=== PATIENT | female | born 1935 | race Caucasian/White ===

== ENCOUNTER 2016-12-17 13:42 | Inpatient (IN) | payer MEDICARE, BC ==
--- NOTE | ~2016-12-17 | CR72 ---
[facility]. [facility] A Service of [facility] RADIOLOGY TEXT RESULTS PATIENT: BABAR HUANG LOCATION: SED : 37 UNIT #: [id number] AGE: [address]: Deyvi Powell MD SEX: F ORDER DR: [id number] [place] [address] [id number] E MR#: [id number] Acc #: [id number] NAME: BABAR HUANG : 1935 SEX: F STUDY DATE/TIME: 12/17/2016 15:49 UNIT: SED ROOM: STUDY DESCRIPTION: CR Chest Single View Portable Attending Physician: Deyvi Powell M.D. Ordering Physician: Deyvi Powell M.D. Primary Care Physician: Jaimee Esteban A.P.R.N. MEDICAL IMAGING REPORT This report is preliminary unless electronic signature is present. EXAM Portable chest, 1-view. DATE OF STUDY 12/17/16 COMPARISON 09/03/2009 CLINICAL HISTORY Four day history of chest pain with exertion. FINDINGS There is no infiltrate or effusion or pneumothorax. Question of mild cardiomegaly, but otherwise negative. No acute abnormality. IMPRESSION Question mild cardiomegaly. Otherwise, normal/negative portable chest. Dictated by... Eloy Santos M.D. THIS IS AN ELECTRONICALLY VERIFIED REPORT Eloy Santos M.D. at 12/17/2016 10:46 PM ANNY/isaias TD: 12/17/2016 22:38 JOB #: [id number] MEDICAL IMAGING REPORT Page 1 of 1
--- NOTE | ~2016-12-17 | EKG ---
PATIENT: BABAR HUANG UNIT #: [id number] Ventricular Rate: 67 BPM Atrial Rate: 67 BPM P-R Interval: 144 ms QRS Duration: 78 ms Q-T Interval: 396 ms QTC Calculation(Bezet): 418 ms Calculated R [place]: -25 degrees Calculated T [place]: 150 degrees Diagnosis Line: Normal sinus rhythm Diagnosis Line: ST and T wave abnormality, consider lateral ischemia Diagnosis Line: Abnormal ECG Diagnosis Line: When compared with ECG of 04-SEP-2009 06:52, Diagnosis Line: Nonspecific T wave abnormality, improved in Diagnosis Line: Inferior leads Diagnosis Line: T wave inversion no longer evident in Anterior Diagnosis Line: leads Diagnosis Line: Confirmed by BRENNA ZAVALA MD ([id number]) on Diagnosis Line: 12/23/2016 3:36:12 PM INTERPRETING EDGAR MENDEZ
[~2016-12-17 13:42] MED LIST: ASPIRIN PO; DIOVAN PO; DIOVAN80 M1 PO; LISINOPRIL PO; LOPRESSOR PO; NORVASC10 MG PO; SYNTHROID PO
[2016-12-17] MEDS ORDERED: METOPROLOL PO (13:54)
[2016-12-17 14:31] LABS: BASOPHIL% 0.3 % (0-2.5); DIFF IND NO; HEMATOCRIT 43.3 % (35.0-45.0); HEMOGLOBIN 15.2 gm/dL (12.0-16.0); LYMPHOCYTE# 0.9 X10e3 (1.0-3.5); LYMPHOCYTE% 18.7 % (17.0-45.0); MEAN CELL VOLUME 91.3 FL (83-96); MEAN CORPUSCULAR HGB CONC 35.1 g/dL (30-36); MEAN PLATELET VOLUME 7.2 FL (6.5-11.5); MONOCYTE# 0.4 X10e3 (0-1.0); MONOCYTE% 8.8 % (3.0-12.0); NEUTROPHIL# 3.4 X10e3 (1.5-7.1); NEUTROPHIL% 71.2 % (40-75); PLATELET COUNT 168 X10e3 (140-420); RED BLOOD COUNT 4.74 X10e (3.90-5.30); RED CELL DISTRIBUTION WIDTH 13.1 % (11.0-15.5); WHITE BLOOD COUNT 4.8 X10e3 (4.0-10.5)
[2016-12-17 14:43] LABS: BILIRUBIN, DIRECT 0.2 mg/dL (0.0-0.2); BILIRUBIN,INDIRECT 0.8 mg/dL (0.0-0.9); CALCIUM SERUM 9.6 mg/dL (8.4-10.2); GLOM FILT RATE Estimated 53.6 mL/min (>60); POTASSIUM 3.8 mmol/L (3.5-5.1); PROTEIN TOTAL SERUM 7.7 g/dL (6.0-8.3)
[2016-12-17 14:54] LABS: INR 1.1; PROTHROMBIN TIME (PATIENT) 12.2 SECONDS (9.5-12.4)
[2016-12-17 15:01] LABS: PARTIAL THROMBOPLASTIN TIME 27.5 SECONDS (25.6-38.1)
[2016-12-17 16:03] LABS: POC - CKMB 2.2 ng/mL (0.0-7.9); POC - TROPONIN <0.05 ng/mL (<=0.05)
[2016-12-17 16:16] LABS: CK TOTAL <5 IU/L (26-140)
[2016-12-17 16:50] LABS: POC - CKMB 1.4 ng/mL (0.0-7.9); POC - TROPONIN <0.05 ng/mL (<=0.05)
[2016-12-17] MEDS ORDERED: METOPROLOL SUCC25 MG PO (17:19)
[2016-12-19] MEDS ORDERED: HYDROCHLOROTH12.5 MG PO (16:33)
[2016-12-19] MEDS ORDERED: SYNTHROID0.05 MG PO (16:33)
[2016-12-19] MEDS ORDERED: NORVASC PO (16:34)
[2016-12-19] MEDS ORDERED: COZAAR PO (16:35)
== END 2016-12-19 17:26 | disposition home or self-care (01) | DRG 313 ==
LOC: SED 13:42 → C5C 12-18 02:45
PROVIDERS: Emergency Medicine
PROC: B32TYZZ Computerized Tomography (CT Scan) of Left Pulmonary Artery using Other Contrast (ICD-10-PCS; principal; 2016-12-18)
PROC: B32SYZZ Computerized Tomography (CT Scan) of Right Pulmonary Artery using Other Contrast (ICD-10-PCS; 2016-12-18)
PROC: B24BYZZ Ultrasonography of Heart with Aorta using Other Contrast (ICD-10-PCS; 2016-12-18)
DX: R07.9 Chest pain, unspecified (principal); I49.5 Sick sinus syndrome; I10 Essential (primary) hypertension; E03.9 Hypothyroidism, unspecified; F41.9 Anxiety disorder, unspecified; K21.9 Gastro-esophageal reflux disease without esophagitis; Z88.0 Allergy status to penicillin; E87.6 Hypokalemia; I45.5 Other specified heart block
CPT/HCPCS: 36415; 71010; 71275; 78452; 80048; 80061; 80076; 82550; 82553; 83036; 83735; 84439; 84443; 84481; 84484; 85025; 85027; 85610; 85730; 93005; 93017; 93306; 94760; 94761; 96374; 99285; A9500; J0360; J2060; J2405; Q9967